=== PATIENT | female | born 1955 | race Caucasian/White ===

== ENCOUNTER 2016-11-16 15:11 | Emergency (ER) | payer BC ==
[2016-11-16 15:23] VITALS: BP 139/92
--- NOTE | 2016-11-16 15:39 | UC ---
Respiratory Complaint HPI - HPI Summary HPI Summary: cough for 1 month---now worsening with right lung pain--no fevers - History of Current Complaint Chief Complaint: UCRespiratory Stated Complaint: sinus congestion, COUGH, AND CHEST CONGESTION Time Seen by Provider: 11/16/16 15:27 Hx Obtained From: Patient Hx Last Menstrual Period: n/a ?: No Onset/Duration: Gradual Onset, Still Present, Worse Since - past 2 days Timing: Constant Severity Initially: Mild Severity Currently: Moderate Pain Intensity: 7 Pain Scale Used: 0-10 Numeric Character: Cough: Nonproductive Aggravating Factors: Nothing Alleviating Factors: Nothing Associated Signs And Symptoms: Positive: Pleuritic Chest Pain - Allergies/Home Medications Allergies/Adverse Reactions: Allergies Allergy/AdvReac Type Severity Reaction Status Date / Time No Known Allergies Allergy Verified 11/16/16 15:23 Home Medications: Home Medications Clarithromycin TAB* [Biaxin TAB*] 1 BID 11/16/16 [History] PMH/Surg Hx/FS Hx/Imm Hx Previously Healthy: No - DVT, PE, Hypothyroid Endocrine History Of: Denies: Diabetes Cardiovascular History Of: Denies: Hypertension, Pacemaker/ICD, Congestive Heart Failure GI/ History Of: Denies: Renal Disease - Surgical History Surgical History: Yes Surgery Procedure, Year, and Place: BLADDER SLING(TVT SLING) 2009 * 1.5T ONLY * , HYSTERECTOMY 2009 , BILAT CARPAL TUNNEL RELEASE 1995, BILAT FEET PLANTAR FASCIITIS , TUBAL LIGATION, TONSILLECTOMY, IVC FILTER FOR ONE MONTH 2009, BLADDER SLING REMOVAL SURGERY 2015 - Family History Known Family History: Positive: Hypertension - Social History Occupation: Employed Full-time Lives: With Family Alcohol Use: None Substance Use Type: None Smoking Status (MU): Never Smoked Tobacco - Immunization History Most Recent Influenza Vaccination: unk Most Recent Tetanus Shot: unk Most Recent Pneumonia Vaccination: unk Review of Systems Constitutional: Negative Skin: Negative Eyes: Negative ENT: Negative Respiratory: Cough Cardiovascular: Negative Gastrointestinal: Negative Genitourinary: Negative Motor: Negative Neurovascular: Negative Musculoskeletal: Negative Neurological: Negative Psychological: Negative All Other Systems Reviewed And Are Negative: Yes Physical Exam Triage Information Reviewed: Yes Appearance: Well-Appearing, Well-Nourished, Pain Distress - mild Vital Signs: Initial Vital Signs Temp 97.0 F 03/03/17 15:15 Pulse 112 11/16/16 15:15 Resp 20 11/16/16 15:15 BP 139/92 11/16/16 15:15 Pulse Ox 96 11/16/16 15:15 Vital Signs Reviewed: Yes Eye Exam: Normal Eyes: Positive: Conjunctiva Clear ENT Exam: Normal ENT: Positive: Normal ENT inspection, Hearing grossly normal, TMs normal. Negative: Nasal congestion, Nasal drainage, Tonsillar swelling, Tonsillar exudate, Trismus, Muffled/hoarse voice Dental Exam: Normal Neck exam: Normal Neck: Positive: Supple, Nontender, No Lymphadenopathy Respiratory Exam: Normal Respiratory: Positive: Chest non-tender, Lungs clear, Normal breath sounds, No respiratory distress, No accessory muscle use Cardiovascular Exam: Normal Cardiovascular: Positive: No Murmur, Pulses Normal, Brisk Capillary Refill, Tachycardia Abdominal Exam: Normal Musculoskeletal Exam: Normal Musculoskeletal: Positive: Strength Intact, ROM Intact, No Edema Neurological Exam: Normal Neurological: Positive: Alert, Muscle Tone Normal, Fatigued Psychological Exam: Normal Skin Exam: Normal Skin: Positive: rashes UC Diagnostic Evaluation - Laboratory O2 Sat by Pulse Oximetry: 96 Respiratory Course/Dx - Course Course Of Treatment[place] [facility] [place] - Differential Dx/Diagnosis Differential Diagnosis/HQI/PQRI: Bronchitis, Lower Resp Infection, Other - PE Provider Diagnoses: Left lung pain/ cough - Physician Notification/Consults Discussed Patient Care With: Aline Cobb Time Discussed With Above Provider: 15:40 Instructed by Provider To: Transfer Discharge - Discharge Plan Condition: Fair Disposition: AGAINST MEDICAL ADVICE
== END 2016-11-16 15:47 | disposition left against medical advice (07) ==
LOC: UCEAST 15:11
DX: R05 Cough (principal); R07.9 Chest pain, unspecified
CPT/HCPCS: 99212; G0463

== ENCOUNTER 2016-11-16 16:24 | Emergency (ER) | payer BC ==
[2016-11-16 17:42] LABS: Hematocrit 45 % (35-47); Hemoglobin 14.9 g/dl (12.0-16.0); Mean Corpuscular HGB Conc 33 g/dl (31-36); Mean Corpuscular Hemoglobin 31 pg (27-31); Mean Corpuscular Volume 93 fL (80-97); Mean Platelet Volume 7 um3 (7.4-10.4); Red Blood Count 4.85 10^6/ul (4.0-5.4); Red Cell Distribution Width 13 % (10.5-15); White Blood Count 5.7 10^3/ul (3.5-10.8)
--- NOTE | 2016-11-16 18:03 | RAD ---
Indication: RIGHT side chest pain for the past 2 days; constant. History of aneurysm. Comparison: January 21, 2016 CT. Technique: Dual energy PA chest Report: Clear lungs and pleural spaces. Negative for pneumothorax. The heart, pulmonary vasculature, and mediastinal contours are unremarkable. Negative for free air beneath the diaphragm. No rib fracture evident. IMPRESSION: No evidence for acute intrathoracic disease.
[2016-11-16 18:07] LABS: Albumin 4.4 g/dL (3.2-5.2); BUN/Creatinine Ratio 13.3 (8-20); Calcium 9.8 mg/dL (8.6-10.3); EGFR African American 82.4 (>60); EGFR Non-African American 64.1 (>60); Globulin 3.7 g/dL (2-4); Potassium 4.2 mmol/L (3.5-5.0); Total Bilirubin 0.5 mg/dL (0.2-1.0); Total Protein 8.1 g/dL (6.4-8.9)
[2016-11-16 18:26] LABS: TSH (Thyroid Stimulating Horm) 2.1 mcIU/mL (0.34-5.60)
[2016-11-16] MEDS ORDERED: oxyCODONE/Acetamin 5/325 MG* TAB PO ONE (19:15)
[2016-11-16] MEDS ORDERED: predniSONE TAB* 20 MG PO ONE (19:17)
[2016-11-16] MEDS ORDERED: HYDROcodone/ACETAMIN 5-325 MG* 1 TAB PO ONE (19:24)
[2016-11-16 19:37] VITALS: BP 125/73
--- NOTE | 2016-11-16 20:43 | ED ---
William Brothers Matthew, scribed for Boone Basurto MD on 11/16/16 at 1831 . HPI Chest Pain - HPI Summary HPI Summary: A 61 y/o female presents to the ED with right sided chest pain for the past 2 days. The pain is rated 5/10 in severity and described as sharp. Her chest pain is worse with coughing. Associated symptoms include chest congestion, chills, productive cough, rhinorrhea - green discharge. The patient denies SOB and fever. She had a recent sinus infection and URI and was prescribed biaxin. Hx of PE, HLD, thyroid disease. The patient is on pradaxa. FHx of CAD. - History of Current Complaint Chief Complaint: EDChestWallPain Time Seen by Provider: 11/16/16 18:28 Hx Obtained From: Patient Onset/Duration: Started Days Ago, Atraumatic, Still Present Initial Severity: Moderate Current Severity: Moderate Pain Intensity: 5 Pain Scale Used: 0-10 Numeric Chest Pain Location: Right Lateral Chest Pain Radiates: No Character: Sharp/Stabbing Aggravating Factor(s): Other: - Cough Associated Signs and Symptoms: Positive: Chest Pain - only w/ cough, Chills, Productive Cough, Other: - Rhinorrhea. Negative: Shortness of Breath, Fever - Allergy/Home Medications Allergies/Adverse Reactions: Allergies Allergy/AdvReac Type Severity Reaction Status Date / Time No Known Allergies Allergy Verified 11/16/16 15:23 PMH/Surg Hx/FS Hx/Imm Hx Endocrine/Hematology History: Denies: Hx Diabetes Cardiovascular History: Denies: Hx Congestive Heart Failure, Hx Hypertension, Hx Pacemaker/ICD History: Denies: Hx Dialysis, Hx Renal Disease Sensory History: Reports: Hx Hearing Aid - WILL REMOVE FOR MRI Psychiatric History: Denies: Hx Panic Disorder - Surgical History Surgery Procedure, Year, and Place: BLADDER SLING(TVT SLING) 2009 * 1.5T ONLY * , HYSTERECTOMY 2009 , BILAT CARPAL TUNNEL RELEASE 1995, BILAT FEET PLANTAR FASCIITIS , TUBAL LIGATION, TONSILLECTOMY, IVC FILTER FOR ONE MONTH 2009, BLADDER SLING REMOVAL SURGERY 2015 Hx Anesthesia Reactions: No Infectious Disease History: No Infectious Disease History: Reports: Hx Shingles Denies: Traveled Outside the [place] in Last 30 Days - Family History Known Family History: Positive: Hypertension - Social History Alcohol Use: None Substance Use Type: Reports: None Smoking Status (MU): Never Smoked Tobacco Review of Systems Constitutional: Other - Rhinorrhea Positive: Chills. Negative: Fever Eyes: Negative ENT: Negative Positive: Chest Pain - only w/ cough Respiratory: Other - chest congestion Positive: Cough - productive . Negative: Shortness Of Breath Gastrointestinal: Negative Genitourinary: Negative Musculoskeletal: Negative Skin: Negative Neurological: Negative Psychological: Normal All Other Systems Reviewed And Are Negative: Yes Physical Exam - Summary Physical Exam Summary: VITAL SIGNS: Reviewed. GENERAL: Patient is a well developed and nourished female who is lying comfortable in the stretcher. Patient is not in any acute respiratory distress. HEAD AND FACE: No signs of trauma. No ecchymosis, hematomas or skull depressions. No sinus tenderness. EYES: PERRLA, EOMI x 2, No injected conjunctiva, no nystagmus. EARS: Hearing grossly intact. Ear canals and tympanic membranes are within normal limits. MOUTH: Oropharynx within normal limits. NECK: Supple, trachea is midline, no adenopathy, no JVD, no carotid bruit, no c- spine tenderness, neck with full ROM. CHEST: Symmetric, positive tenderness in the right rib cage area at palpation LUNGS: Clear to auscultation bilaterally. No wheezing or crackles. CVS: Regular rate and rhythm, S1 and S2 present, no murmurs or gallops appreciated. ABDOMEN: Soft, non-tender. No signs of distention. No rebound no guarding, and no masses palpated. Bowel sounds are normal. EXTREMITIES: FROM in all major joints, no edema, no cyanosis or clubbing. NEURO: Alert and oriented x 3. No acute neurological deficits. Speech is normal and follows commands. SKIN: Dry and warm Triage Information Reviewed: Yes Vital Signs On Initial Exam: Initial Vitals Temp Pulse Resp BP Pulse Ox 98.3 F 94 18 136/83 99 11/16/16 16:32 11/16/16 16:32 11/16/16 16:32 11/16/16 16:32 11/16/16 16:32 Vital Signs Reviewed: Yes - Tucker Coma Scale Coma Scale Total: 15 Diagnostics - Vital Signs Vital Signs Temp Pulse Resp BP Pulse Ox 11/16/16 18:25 95 20 98 11/16/16 18:24 115/76 11/16/16 16:32 98.3 F 94 18 136/83 99 - Laboratory Lab Results: Lab Results 11/16/16 11/16/16 11/16/16 Range/Units 17:30 17:30 17:30 WBC 5.7 (3.5-10.8) 10^3/ul RBC 4.85 (4.0-5.4) 10^6/ul Hgb 14.9 (12.0-16.0) g/dl Hct 45 (35-47) % MCV 93 (80-97) fL MCH 31 (27-31) pg MCHC 33 (31-36) g/dl RDW 13 (10.5-15) % Plt Count 285 (150-450) 10^3/ul MPV 7 L (7.4-10.4) um3 Neut % (Auto) 52.9 (38-83) % Lymph % (Auto) 36.8 (25-47) % [place] % (Auto) 8.5 (1-9) % Eos % (Auto) 0.6 (0-6) % Baso % (Auto) 1.2 (0-2) % Absolute Neuts (auto) 3.0 (1.5-7.7) 10^3/ul Absolute Lymphs (auto) 2.1 (1.0-4.8) 10^3/ul Absolute Monos (auto) 0.5 (0-0.8) 10^3/ul Absolute Eos (auto) 0 (0-0.6) 10^3/ul Absolute Basos (auto) 0.1 (0-0.2) 10^3/ul Absolute Nucleated RBC 0.01 10^3/ul Nucleated RBC % 0.1 APTT 48.1 H (26.0-36.3) seconds D-Dimer, Quantitative < 200 (Less Than 230) ng/mL Sodium 135 (133-145) mmol/L Potassium 4.2 (3.5-5.0) mmol/L Chloride 100 L (101-111) mmol/L Carbon Dioxide 27 (22-32) mmol/L Anion Gap 8 (2-11) mmol/L BUN 12 (6-24) mg/dL Creatinine 0.90 (0.51-0.95) mg/dL Est GFR ( Amer) 82.4 (>60) Est GFR (Non-Af Amer) 64.1 (>60) BUN/Creatinine Ratio 13.3 (8-20) Glucose 88 (70-100) mg/dL Lactic Acid (0.5-2.0) mmol/L Calcium 9.8 (8.6-10.3) mg/dL Total Bilirubin 0.50 (0.2-1.0) mg/dL AST 18 (13-39) U/L ALT 21 (7-52) U/L Alkaline Phosphatase 67 (34-104) U/L CK-MB (CK-2) 2.3 (0.6-6.3) ng/mL Troponin I 0.00 (<0.04) ng/mL B-Natriuretic Peptide ( - 100) pg/mL Total Protein 8.1 (6.4-8.9) g/dL Albumin 4.4 (3.2-5.2) g/dL Globulin 3.7 (2-4) g/dL Albumin/Globulin Ratio 1.2 (1-3) TSH 2.10 (0.34-5.60) mcIU/mL 11/16/16/11/30 Range/Units 17:30 17:30 WBC (3.5-10.8) 10^3/ul RBC (4.0-5.4) 10^6/ul Hgb (12.0-16.0) g/dl Hct (35-47) % MCV (80-97) fL MCH (27-31) pg MCHC (31-36) g/dl RDW (10.5-15) % Plt Count (150-450) 10^3/ul MPV (7.4-10.4) um3 Neut % (Auto) (38-83) % Lymph % (Auto) (25-47) % [place] % (Auto) (1-9) % Eos % (Auto) (0-6) % Baso % (Auto) (0-2) % Absolute Neuts (auto) (1.5-7.7) 10^3/ul Absolute Lymphs (auto) (1.0-4.8) 10^3/ul Absolute Monos (auto) (0-0.8) 10^3/ul Absolute Eos (auto) (0-0.6) 10^3/ul Absolute Basos (auto) (0-0.2) 10^3/ul Absolute Nucleated RBC 10^3/ul Nucleated RBC % APTT (26.0-36.3) seconds D-Dimer, Quantitative (Less Than 230) ng/mL Sodium (133-145) mmol/L Potassium (3.5-5.0) mmol/L Chloride (101-111) mmol/L Carbon Dioxide (22-32) mmol/L Anion Gap (2-11) mmol/L BUN (6-24) mg/dL Creatinine (0.51-0.95) mg/dL Est GFR ( Amer) (>60) Est GFR (Non-Af Amer) (>60) BUN/Creatinine Ratio (8-20) Glucose (70-100) mg/dL Lactic Acid 0.6 (0.5-2.0) mmol/L Calcium (8.6-10.3) mg/dL Total Bilirubin (0.2-1.0) mg/dL AST (13-39) U/L ALT (7-52) U/L Alkaline Phosphatase (34-104) U/L CK-MB (CK-2) (0.6-6.3) ng/mL Troponin I (<0.04) ng/mL B-Natriuretic Peptide 15 ( - 100) pg/mL Total Protein (6.4-8.9) g/dL Albumin (3.2-5.2) g/dL Globulin (2-4) g/dL Albumin/Globulin Ratio (1-3) TSH (0.34-5.60) mcIU/mL Result Diagrams: 11/16/16 17:30 11/16/16 17:30 Lab Statement: Any lab studies that have been ordered have been reviewed, and results considered in the medical decision making process. - Radiology CXR Xray Interpretation: No Acute Changes - IMPRESSION: No evidence for acute intrathoracic disease. Radiology Interpretation Completed By: Radiologist Chest Pain Course/Dx - Course Assessment/Plan: A 61 y/o female presents to the ED with right sided chest pain for the past 2 days. The pain is rated 5/10 in severity and described as sharp. Her chest pain is worse with coughing. Associated symptoms include chest congestion, chills, productive cough, rhinorrhea - green discharge. The patient denies SOB and fever. She had a recent sinus infection and URI and was prescribed biaxin. Hx of PE, HLD, thyroid disease. The patient is on pradaxa. FHx of CAD. Blood work WNL. D-Dimer less than 200. CXR shows no acute pathology. The patients pain is reproducible on the right rib cage area around the 6-7th rib. The pain is only when she cough or moves. Therefore, I believe the patients pain is in the chest wall or pleural. The patient was given prednisone and Walker for the pain. Since the D-dimer is negative I have a low suspicion for PE and since the troponin is 0.00 I have low suspicion for cardiac etiology. EKG: NSR at BPM w/o JESUS. She will be discharged home on Vicodin and dextromethor to follow-up with her PCP. She was instructed to return to the ED if her symptoms worsen or she develops fever or chills. The patient is A&Ox3 and hemodynamically stable. - Chest Pain Differential Diagnosis/HQI/PQRI: CHF, Chest Wall, Pulmonary Edema, Pulmonary Embolism - Diagnoses Provider Diagnoses: Pleural condition, unspecified, Rib pain on right side Discharge - Discharge Plan Condition: Stable Disposition: HOME Prescriptions: Hydrocodone-Acetaminophen [Vicodin 5-300 mg] 1 tab PO Q6H PRN #14 tab MDD max 4 tabs / day PRN Reason: Pain Promethazine-Dm [Promethazine/Dextromethor] 5 ml PO Q8H #90 ml Patient Education Materials: Pleurisy (ED) Forms: *Work Release Referrals: Sandrine Mccann MD [Primary Care Provider] - 3 Days Additional Instructions: Please follow-up with your primary care physician in 3 days. The documentation as recorded by the William cheng Matthew accurately reflects the service I personally performed and the decisions made by , Boone Basurto MD.
== END 2016-11-16 19:52 | disposition home or self-care (01) ==
LOC: ED 16:24
DX: R07.81 Pleurodynia (principal); R07.9 Chest pain, unspecified; R05 Cough; R68.83 Chills (without fever)
CPT/HCPCS: 36415; 71010; 80053; 82553; 83605; 83880; 84443; 84484; 85025; 85379; 85730; 99283; A9270-GY; J7512

== ENCOUNTER 2017-04-08 16:48 | Emergency (ER) | payer BC ==
[2017-04-08 16:56] VITALS: BP 146/106
--- NOTE | 2017-04-08 20:08 | UC ---
Complaint Female HPI - HPI Summary HPI Summary: UTI DIAGNOSED TWO WEEKS AGO SYMPTOMS SEEMED TO IMPROVE WITH ANTIBIOTICS. OVER LAST TWO DAYS SYMPTOMS HAVE RETURNED (LOW BACK PAIN, BURNING WITH URINATION, FREQUENCY), HAS HISTORY OF INTERSTITIAL CYSTITIS. - History Of Current Complaint Chief Complaint: UCGU Stated Complaint: ABD & BACK PAIN,BLOOD IN URINE Time Seen by Provider: 04/08/17 18:17 Hx Obtained From: Patient Hx Last Menstrual Period: n/a Onset/Duration: Gradual Onset, Lasting Weeks, Still Present Timing: Lasting Weeks Severity Initially: Mild Severity Currently: Mild Pain Intensity: 1 Pain Scale Used: 0-10 Numeric Aggravating Factor(s): Urination Associated Signs And Symptoms: Positive: Back Pain - MILD. Negative: Fever, Vaginal Bleeding/Discharge, Vaginal Discharge - Risk Factors Ectopic Risk Factor: Negative Ovarian Torsion Risk Factor: Negative - Allergies/Home Medications Allergies/Adverse Reactions: Allergies Allergy/AdvReac Type Severity Reaction Status Date / Time No Known Allergies Allergy Verified 11/16/16 15:23 PMH/Surg Hx/FS Hx/Imm Hx Previously Healthy: Yes - Surgical History Surgical History: Yes Surgery Procedure, Year, and Place: BLADDER SLING(TVT SLING) 2009 * 1.5T ONLY * , HYSTERECTOMY 2009 , BILAT CARPAL TUNNEL RELEASE 1995, BILAT FEET PLANTAR FASCIITIS , TUBAL LIGATION, TONSILLECTOMY, IVC FILTER FOR ONE MONTH 2009, BLADDER SLING REMOVAL SURGERY 2015 - Family History Known Family History: Positive: Hypertension - Social History Alcohol Use: None Substance Use Type: None Smoking Status (MU): Never Smoked Tobacco - Immunization History Most Recent Influenza Vaccination: unk Most Recent Tetanus Shot: unk Most Recent Pneumonia Vaccination: unk Review of Systems Constitutional: Negative Skin: Negative Eyes: Negative ENT: Negative Respiratory: Negative Cardiovascular: Negative Gastrointestinal: Negative Genitourinary: Negative Motor: Negative Neurovascular: Negative Musculoskeletal: Arthralgia, Myalgia Neurological: Negative Psychological: Negative All Other Systems Reviewed And Are Negative: Yes Physical Exam Triage Information Reviewed: Yes Appearance: Well-Appearing, No Pain Distress, Well-Nourished Vital Signs: Initial Vital Signs Temp 98.4 F 04/08/17 16:52 Pulse 88 04/08/17 16:52 Resp 20 04/08/17 16:52 BP 146/106 04/08/17 16:52 Pulse Ox 100 04/08/17 16:52 Vital Signs Reviewed: Yes Eye Exam: Normal ENT Exam: Normal Dental Exam: Normal Neck exam: Normal Respiratory Exam: Normal Respiratory: Positive: Chest non-tender, Lungs clear, Normal breath sounds, No respiratory distress Cardiovascular Exam: Normal Cardiovascular: Positive: RRR, No Murmur, Pulses Normal Abdominal Exam: Normal Musculoskeletal Exam: Normal Musculoskeletal: Positive: Strength Intact, ROM Intact Neurological Exam: Normal Psychological Exam: Normal Skin Exam: Normal Complaint Female Dx - Differential Dx/Diagnosis Differential Diagnosis/HQI/PQRI: Sexually Transmitted Disease, Urinary Tract Infection, Other - INTERSTITIAL CYSTITIS Provider Diagnoses: CYSTITIS; DYSURIA Discharge - Discharge Plan Condition: Stable Disposition: HOME Prescriptions: Fluconazole [Diflucan 150 MG (NF)] 150 mg PO ONCE #1 tab Patient Education Materials: Dysuria (ED) Referrals: Sandrine Mccann MD [Primary Care Provider] - Jose Elias Kamara MD [Medical Doctor] -
== END 2017-04-08 19:11 | disposition home or self-care (01) ==
LOC: UCEAST 16:48
DX: N30.90 Cystitis, unspecified without hematuria (principal); R30.0 Dysuria
CPT/HCPCS: 81003; 99212; G0463

== ENCOUNTER 2018-01-02 16:01 | Emergency (ER) | payer SELFPAY ==
[2018-01-02 16:28] VITALS: BP 146/100
--- NOTE | 2018-01-02 17:03 | UC ---
Minor Trauma HPI - HPI Summary HPI Summary: 62 yo female slipped and fell at work a few hours ago Landed on her back struck the back of her head NO LOC c/o right elbow 7/10 pain c/o mid thoracic pain 6/10 c/o occipital INFANTE 3/10 no photo/phono phobia no nausea or vomiting no disequilibrium denies neck pain denies hip pain right elbow abrasions continues to ooze - History of Current Complaint Chief Complaint: UCGeneralIllness Stated Complaint: HEAD AND ELBOW INJURY Time Seen by Provider: 01/02/18 16:03 Hx Obtained From: Patient Hx Last Menstrual Period: n/a Onset/Duration: Sudden Onset, Lasting Hours Onset Of Pain: Immediate Severity Initially: Moderate Severity Currently: Moderate Pain Intensity: 6 Pain Scale Used: 0-10 Numeric Mechanism Of Injury: Fall From Height Of: Aggravating Factor(s): Coughing, Deep Breaths, Movement Alleviating Factor(s): Rest Associated Signs And Symptoms: Positive: Swelling. Negative: Loss Of Consciousness, Ecchymosis Related History: Positive: Occupational Injury, Anticoagulants - Allergies/Home Medications Allergies/Adverse Reactions: Allergies Allergy/AdvReac Type Severity Reaction Status Date / Time No Known Allergies Allergy Verified 01/02/18 16:28 PMH/Surg Hx/FS Hx/Imm Hx Previously Healthy: Yes Cardiovascular History: Hypertension, Deep Vein Thrombosis Respiratory History: Pulmonary Embolism - x2 - Surgical History Surgical History: Yes Surgery Procedure, Year, and Place: BLADDER SLING(TVT SLING) REMOVED*, HYSTERECTOMY 2009 , BILAT CARPAL TUNNEL RELEASE 1995, BILAT FEET PLANTAR FASCIITIS , TUBAL LIGATION, TONSILLECTOMY, IVC FILTER FOR ONE MONTH 2009, BLADDER SLING REMOVAL SURGERY 2015 - Family History Known Family History: Positive: Hypertension - Social History Alcohol Use: None Substance Use Type: None Smoking Status (MU): Never Smoked Tobacco - Immunization History Most Recent Influenza Vaccination: unk Most Recent Tetanus Shot: unk Most Recent Pneumonia Vaccination: unk Review of Systems Constitutional: Negative Skin: Negative Eyes: Negative ENT: Negative Respiratory: Negative Cardiovascular: Negative Gastrointestinal: Negative Genitourinary: Negative Motor: Negative Neurovascular: Negative Musculoskeletal: Arthralgia, Myalgia Neurological: Headache Psychological: Negative Is Patient Immunocompromised?: No All Other Systems Reviewed And Are Negative: Yes Physical Exam Triage Information Reviewed: Yes Appearance: Well-Appearing, No Pain Distress, Well-Nourished Vital Signs: Initial Vital Signs Temp 98.2 F 01/02/18 16:21 Pulse 90 01/02/18 16:21 Resp 18 01/02/18 16:21 BP 146/100 01/02/18 16:21 Pulse Ox 97 01/02/18 16:21 Vital Signs Reviewed: Yes Eyes: Positive: Conjunctiva Clear ENT: Negative: Hearing grossly normal - bilat hearing aids, Nasal congestion, Trismus, Muffled voice Dental: Positive: Other: - no tmj tenderness Neck: Positive: Supple, Nontender, No Lymphadenopathy Respiratory: Positive: Lungs clear, Normal breath sounds, No respiratory distress, No accessory muscle use Cardiovascular: Positive: RRR, No Murmur Musculoskeletal: Positive: ROM Intact Neurological: Positive: Alert Psychological Exam: Normal Skin Exam: Other - abrasion right elbow Diagnostics - Radiology No standard instances Xray Interpretation: No Acute Changes Radiology Interpretation Completed By: Radiologist - r elbow-no fx, T-S DDD, CT brain neg Minor Trauma Course/Dx - Differential Dx/Diagnosis Provider Diagnoses: 1. scalp hematoma. 2. right elbow contusion and abrasion. 3. thoraic strain/ontusion. 4. Elevated BP without dx of hypertension Discharge - Sign-Out/Discharge Documenting (check all that apply): Discharge - Discharge Plan Condition: Stable Disposition: HOME Patient Education Materials: Pulmonary Contusion (ED), Head Injury (ED), Abrasion (ED) Referrals: Sandrine Mccann MD [Primary Care Provider] - Additional Instructions: recheck in 5 days if not markedly improved recheck in ER for worsening headache/confusion/vomiting tylenol for pain ice - Billing Disposition and Condition Condition: STABLE Disposition: HOME
--- NOTE | 2018-01-02 17:14 | RAD ---
INDICATION: Trauma, laceration injury right elbow. TECHNIQUE: 4 views of the right elbow were obtained. FINDINGS: The bones are normal alignment. No fracture is seen. No joint effusion is noted. There is soft tissue swelling and air posterior to the olecranon process of the ulna consistent with the patient's history of a laceration type injury. IMPRESSION: SOFT TISSUE INJURY, NO FRACTURE IS SEEN.
--- NOTE | 2018-01-02 17:16 | RAD ---
INDICATION: Trauma, back pain. COMPARISON: Comparison is made with a prior CT of the chest from January 21, 2016. TECHNIQUE: AP and lateral films of the dorsal spine were obtained. FINDINGS: There is a slightly exaggerated dorsal kyphosis. The vertebra are otherwise in normal alignment. No fracture is seen. There is moderate to severe degenerative disc disease in the mid dorsal spine. IMPRESSION: 1. NO EVIDENCE FOR FRACTURE. 2. MODERATE TO SEVERE DEGENERATIVE DISC DISEASE.
[2018-01-02] MEDS ORDERED: Tetan/Diph/Pertus SYR(Tdap)* 0.5 ML SYR(BOOSTRIX) use SYR IM ONE (17:25)
--- NOTE | 2018-01-02 17:30 | RAD ---
INDICATION: Head injury, anticoagulated. COMPARISON: There are no prior studies available for comparison. TECHNIQUE: Contiguous axial sections of the brain were obtained from the skull base to the vertex without contrast. FINDINGS: The ventricles, cisterns and sulci are within normal limits. No significant focal abnormality or mass effect is seen. There is no evidence for hemorrhage. No significant focal osseous abnormality is seen. The visualized portion of the paranasal sinuses and mastoid air cells appear clear. IMPRESSION: NO EVIDENCE FOR ACUTE INTRACRANIAL ABNORMALITY.
== END 2018-01-02 17:45 | disposition home or self-care (01) ==
LOC: UCEAST 16:01
DX: S00.03XA Contusion of scalp, initial encounter (principal); S50.01XA Contusion of right elbow, initial encounter; S20.229A Contusion of unspecified back wall of thorax, initial encounter; S50.311A Abrasion of right elbow, initial encounter; W01.0XXA Fall on same level from slipping, tripping and stumbling without subsequent striking against object, initial encounter; Y93.9 Activity, unspecified; Y92.9 Unspecified place or not applicable; Y99.0 Civilian activity done for income or pay; Z23 Encounter for immunization; M51.34 Other intervertebral disc degeneration, thoracic region; I10 Essential (primary) hypertension; Z86.718 Personal history of other venous thrombosis and embolism; Z86.711 Personal history of pulmonary embolism; Z79.01 Long term (current) use of anticoagulants
CPT/HCPCS: 70450; 72070; 90471; 90715; 99212; G0463

== ENCOUNTER 2018-06-30 07:55 | Emergency (ER) | payer BC ==
[2018-06-30 08:18] VITALS: BP 139/91
--- NOTE | 2018-06-30 08:51 | UC ---
Dizzy HPI HPI Summary: 62-year-old woman comes in with a chief complaint of dizziness. She woke up this morning around 6:00 and when she moved her head she gets a spinning dizziness. Denies any vision changes or difficulty of speech or any weakness or numbness. 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 When she is dizzy she feels nauseous and not well. Denies any chest pain or headache. She does have a history of hearing loss and she has hearing aids in. She also has chronic nasal congestion. Yesterday she injured her left hip and bruised her left hip she wonders if there is a blood clot causing her dizziness. - History Of Current Complaint Chief Complaint: UCDizziness Stated Complaint: DIZZINESS Time Seen by Provider: 06/30/18 08:14 Hx Last Menstrual Period: n/a Pain Intensity: 4 - Allergies/Home Medications Allergies/Adverse Reactions: Allergies Allergy/AdvReac Type Severity Reaction Status Date / Time No Known Allergies Allergy Verified 06/30/18 08:18 Home Medications: Home Medications Acetaminophen TAB* [Tylenol TAB*] 975 mg PO Q6H PRN 06/30/18 [History Confirmed 06/30/18] Loratadine [Claritin] 10 mg PO DAILY PRN 06/30/18 [History Confirmed 06/30/18] Ubidecarenone [Natural Coenzyme Q10] 100 mg PO DAILY 06/30/18 [History Confirmed 06/30/18] PMH/Surg Hx/FS Hx/Imm Hx Cardiovascular History: Deep Vein Thrombosis, Other - pe Other Cardiovascular History: . - Surgical History Surgical History: Yes Surgery Procedure, Year, and Place: BLADDER SLING(TVT SLING) REMOVED*, HYSTERECTOMY 2009 , BILAT CARPAL TUNNEL RELEASE 1995, BILAT FEET PLANTAR FASCIITIS , TUBAL LIGATION, TONSILLECTOMY, IVC FILTER FOR ONE MONTH 2009, BLADDER SLING REMOVAL SURGERY 2015 - Family History Known Family History: Positive: Hypertension - Social History Alcohol Use: None Substance Use Type: None Smoking Status (MU): Never Smoked Tobacco - Immunization History Most Recent Influenza Vaccination: unk Most Recent Tetanus Shot: unk Most Recent Pneumonia Vaccination: unk Review of Systems Constitutional: Negative Skin: Negative Eyes: Negative ENT: Other - see hpi Respiratory: Negative Cardiovascular: Negative Gastrointestinal: Negative Motor: Negative Neurovascular: Negative Musculoskeletal: Negative Neurological: Other - SEE HPI Psychological: Negative Is Patient Immunocompromised?: No All Other Systems Reviewed And Are Negative: Yes Physical Exam Triage Information Reviewed: Yes Appearance: Well-Appearing, No Pain Distress, Well-Nourished Vital Signs: Initial Vital Signs Temp 98.4 F 06/30/18 08:11 Pulse 101 06/30/18 08:11 Resp 16 06/30/18 08:11 BP 139/91 06/30/18 08:11 Pulse Ox 98 06/30/18 08:11 Vital Signs Reviewed: Yes Eye Exam: Normal Eyes: Positive: Conjunctiva Clear, Other: - Patient has some mild right bleeding horizontal nystagmus. She does not have any vertical nystagmus or nystagmus when she's not moving her eyes otherwise. There is no visual field deficit. ENT: Positive: Pharynx normal, Nasal congestion, Other - Patient has bilateral hearing aids in. Neck exam: Normal Neck: Positive: Supple Respiratory: Positive: Lungs clear, Normal breath sounds, No respiratory distress Cardiovascular Exam: Normal Cardiovascular: Positive: RRR Musculoskeletal Exam: Normal Musculoskeletal: Positive: Strength Intact, ROM Intact, No Edema Neurological Exam: Normal Neurological: Positive: Alert, Muscle Tone Normal, Other: - No focal neurologic deficit. Finger to nose and heel to williamson are both normal. Psychological Exam: Normal Psychological: Positive: Age Appropriate Behavior Skin Exam: Normal Diagnostics - EKG EKG Comments: AT 08:07 Cardiac Rate: NL Cardiac Rhythm: Sinus: Normal - 96 BPM Ectopy: None ST Segment: Normal Dizzy Course/Dx - Course Course Of Treatment: The cause of the vertigo is most likely benign paroxysmal positional vertigo as the patient does have a stuffy nose and she's got ear hearing aids also the vertigo is worse with movement and it goes away with rest. She only has horizontal nystagmus with eye movement. She also has normal finger-nose and lasp-la-aaaf. I discussed this with the patient she is concerned that a blood clot is causing her dizziness and I recommended she go to the emergency department. She declined ambulance transport. - Differential Dx/Diagnosis Provider Diagnoses: DIZZINESS Discharge - Sign-Out/Discharge Documenting (check all that apply): Patient Departure All imaging exams completed and their final reports reviewed: No Studies - Discharge Plan Condition: Stable Disposition: HOME-RECOMMEND TO ED Prescriptions: Meclizine HCl [Motion Sickness Relief] 25 mg PO Q6H PRN #20 tablet PRN Reason: Dizziness Patient Education Materials: Vertigo (ED), Dizziness (ED) Referrals: Sandrine Mccann MD [Primary Care Provider] - Additional Instructions: GO DIRECTLY TO THE EMERGENCY DEPARTMENT FOR FURTHER EVALUATION. - Billing Disposition and Condition Condition: STABLE Disposition: Home-Recommend to ED
[2018-06-30] MEDS ORDERED: Meclizine TAB* 12.5 MG PO ONE (08:54)
== END 2018-06-30 09:06 | disposition home health service (06) ==
LOC: UCEAST 07:55
DX: R42 Dizziness and giddiness (principal); I82.409 Acute embolism and thrombosis of unspecified deep veins of unspecified lower extremity; I26.99 Other pulmonary embolism without acute cor pulmonale; R09.81 Nasal congestion
CPT/HCPCS: 93005; 99212; A9270-GY; G0463

== ENCOUNTER 2018-06-30 10:14 | Emergency (ER) | payer BC ==
[2018-06-30 12:04] LABS: ABS Basophils 0 10^3/ul (0-0.2); ABS Eosinophils 0 10^3/ul (0-0.6); ABS Lymphocytes 1.7 10^3/ul (1.0-4.8); ABS Monocytes 0.4 10^3/ul (0-0.8); ABS Neutrophils 2.6 10^3/ul (1.5-7.7); ABS Nucleated RBC 0 10^3/ul; Eosinophil % 0.2 % (0-6); Hematocrit 44 % (35-47); Hemoglobin 14.8 g/dl (12.0-16.0); Lymphocyte % 36.6 % (25-47); Mean Corpuscular HGB Conc 34 g/dl (31-36); Mean Corpuscular Hemoglobin 31 pg (27-31); Mean Corpuscular Volume 92 fL (80-97); Mean Platelet Volume 7.7 um3 (7.4-10.4); Nucleated Red Blood Cells % 0.2; Platelet Count 252 10^3/ul (150-450); Red Blood Count 4.73 10^6/ul (4.00-5.40); Red Cell Distribution Width 13 % (10.5-15); White Blood Count 4.7 10^3/ul (3.5-10.8)
[2018-06-30 12:19] LABS: EGFR Non-African American 75.3 (>60)
--- NOTE | 2018-06-30 16:29 | ED ---
Dizziness - HPI Summary HPI Summary: A 62 y/o F referred from Urgent Care presents to ED with c/o dizziness onset upon waking at 0600. The dizziness is described as room-spinning. Associated sx : sinus congestion, cough, mildly unsteady gait, sore throat last week, diarrhea yesterday. Denies fall, head trauma. She is still mildly dizzy at bedside. Yesterday afternoon, pt locked herself out of her house, broke a window and crawled inside. She has minor abrasions to her abd. PMHx: DVT. - History Of Current Complaint Chief Complaint: EDDizziness Stated Complaint: DIZZINESS Hx Obtained From: Patient, Family/Nurse Paralegal - Onset/Duration: Still Present - mildly Timing: Hours Severity Initially: Moderate Severity Currently: Mild Character: Room Spinning Alleviating Factor(s): Other - meclizine Associated Signs And Symptoms: Positive: Other: - pos: sinus congestion - Allergies/Home Medications Allergies/Adverse Reactions: Allergies Allergy/AdvReac Type Severity Reaction Status Date / Time No Known Allergies Allergy Verified 06/30/18 10:44 PMH/Surg Hx/FS Hx/Imm Hx Previously Healthy: No Endocrine/Hematology History: Reports: Hx Thyroid Disease Denies: Hx Diabetes Cardiovascular History: Denies: Hx Congestive Heart Failure, Hx Hypertension, Hx Pacemaker/ICD Respiratory History: Denies: Hx Asthma, Hx Chronic Obstructive Pulmonary Disease (COPD) GI History: Denies: Hx Ulcer History: Denies: Hx Dialysis, Hx Renal Disease Musculoskeletal History: Denies: Hx Osteoporosis Sensory History: Reports: Hx Hearing Aid Psychiatric History: Denies: Hx Panic Disorder - Surgical History Surgery Procedure, Year, and Place: BLADDER SLING(TVT SLING) REMOVED*, HYSTERECTOMY 2009 , BILAT CARPAL TUNNEL RELEASE 1995, BILAT FEET PLANTAR FASCIITIS , TUBAL LIGATION, TONSILLECTOMY, IVC FILTER FOR ONE MONTH 2009, BLADDER SLING REMOVAL SURGERY 2015 Hx Anesthesia Reactions: No Infectious Disease History: No Infectious Disease History: Reports: Hx Shingles Denies: Hx Clostridium Difficile, Hx Hepatitis, Hx Human Immunodeficiency Virus (HIV), Hx of Known/Suspected MRSA, Hx Tuberculosis, Hx Known/Suspected VRE , Hx Known/Suspected VRSA, History Other Infectious Disease, Traveled Outside the [place] in Last 30 Days - Family History Known Family History: Positive: Hypertension - Social History Occupation: Employed Full-time Lives: With Family Alcohol Use: None Hx Substance Use: No Substance Use Type: Reports: None Hx Tobacco Use: No Smoking Status (MU): Never Smoked Tobacco Review of Systems Negative: Fever Eyes: Negative Negative: Blurred Vision Positive: Sore Throat - last week, resolved, Other - pos: sinus congestion. Negative: Ear Ache Cardiovascular: Negative Positive: Cough Positive: Diarrhea Musculoskeletal: Negative Skin: Other - mild abrasions to abd Neurological: Other - pos: dizziness, mildly unsteady gait Negative: Headache Psychological: Normal All Other Systems Reviewed And Are Negative: No Physical Exam - Summary Physical Exam Summary: Appearance: Alert, conversive, nontoxic appearing Skin: Warm, dry, no mottling, no rashes, no contusions HEENT: EOMI, PERRL, moist mucous membranes. Hearing aids present. Neck: No masses on the neck, supple Respiratory: Clear to auscultation, breath sounds present, no rales, no rhonchi , no wheezes Cardiovascular: RRR, pulses are symmetrical in both lower and upper extremities Abdomen: Soft, non-tender Bowel Sounds: Present Musculoskeletal: No CVA tenderness, no obvious deformity, moving all extremities in a grossly normal manner Neurological: A&Ox3, CN II-XII Intact, moving all extremities symmetrically Psychiatric: Normal affect and mood Triage Information Reviewed: Yes Vital Signs On Initial Exam: Initial Vitals Temp Pulse Resp BP Pulse Ox 97.9 F 89 16 137/99 97 06/30/18 10:39 06/30/18 10:39 06/30/18 10:39 06/30/18 10:39 06/30/18 10:39 Vital Signs Reviewed: Yes - Tucker Coma Scale Best Eye Response: 4 - Spontaneous Best Motor Response: 6 - Obeys Commands Best Verbal Response: 5 - Oriented Coma Scale Total: 15 Diagnostics - Vital Signs Vital Signs Temp Pulse Resp BP Pulse Ox 06/30/18 13:50 97.7 F 86 20 116/86 98 06/30/18 10:39 97.9 F 89 16 137/99 97 - Laboratory Lab Results: Lab Results 06/30/18 06/30/18 06/30/18 Range/Units 11:46 11:46 11:46 WBC 4.7 (3.5-10.8) 10^3/ul RBC 4.73 (4.00-5.40) 10^6/ul Hgb 14.8 (12.0-16.0) g/dl Hct 44 (35-47) % MCV 92 (80-97) fL MCH 31 (27-31) pg MCHC 34 (31-36) g/dl RDW 13 (10.5-15) % Plt Count 252 (150-450) 10^3/ul MPV 7.7 (7.4-10.4) um3 Neut % (Auto) 54.4 (38-83) % Lymph % (Auto) 36.6 (25-47) % [place] % (Auto) 7.9 H (0-7) % Eos % (Auto) 0.2 (0-6) % Baso % (Auto) 0.9 (0-2) % Absolute Neuts (auto) 2.6 (1.5-7.7) 10^3/ul Absolute Lymphs (auto) 1.7 (1.0-4.8) 10^3/ul Absolute Monos (auto) 0.4 (0-0.8) 10^3/ul Absolute Eos (auto) 0 (0-0.6) 10^3/ul Absolute Basos (auto) 0 (0-0.2) 10^3/ul Absolute Nucleated RBC 0 10^3/ul Nucleated RBC % 0.2 Sodium 140 (135-145) mmol/L Potassium 4.3 (3.5-5.0) mmol/L Chloride 107 (101-111) mmol/L Carbon Dioxide 29 (22-32) mmol/L Anion Gap 4 (2-11) mmol/L BUN 14 (6-24) mg/dL Creatinine 0.78 (0.51-0.95) mg/dL Est GFR ( Amer) 91.2 (>60) Est GFR (Non-Af Amer) 75.3 (>60) BUN/Creatinine Ratio 17.9 (8-20) Glucose 94 (70-100) mg/dL Lactic Acid 0.8 (0.5-2.0) mmol/L Calcium 9.7 (8.6-10.3) mg/dL Magnesium 2.2 (1.9-2.7) mg/dL Total Bilirubin 0.50 (0.2-1.0) mg/dL AST 20 (13-39) U/L ALT 24 (7-52) U/L Alkaline Phosphatase 67 (34-104) U/L Total Protein 7.1 (6.4-8.9) g/dL Albumin 4.3 (3.2-5.2) g/dL Globulin 2.8 (2-4) g/dL Albumin/Globulin Ratio 1.5 (1-3) Result Diagrams: 06/30/18 11:46 06/30/18 11:46 Lab Statement: Any lab studies that have been ordered have been reviewed, and results considered in the medical decision making process. - CT BRAIN CT CT Interpretation: No Acute Changes - IMPRESSION: No evidence of intracranial mass or hemorrhage is noted. ED provider has reviewed this report. CT Interpretation Completed By: Radiologist - EKG 1158 Cardiac Rate: NL - 78bpm EKG Rhythm: Sinus Rhythm EKG Interpretation: nml QRS, nml QTC, nml axis. Re-Evaluation - Re-Evaluation 1 Re-Evaluation Time: 17:42 Change: Unchanged Comment: Discussing CT and lab results with pt and . Dizzy Course/Dx - Course Course Of Treatment: Pt is a 62 y/o F referred from Urgent Care presenting with dizziness onset upon waking at 0600. The dizziness is described as room- spinning. Associated sx: sinus congestion, cough, mildly unsteady gait, sore throat last week, diarrhea yesterday. CT scan is negative. Labs are unremarkable. - Diagnoses Provider Diagnoses: Dizziness Discharge - Sign-Out/Discharge Documenting (check all that apply): Patient Departure - Discharge Plan Condition: Stable Disposition: HOME Patient Education Materials: Dizziness (ED) Referrals: Sandrine Mccann MD [Primary Care Provider] - Additional Instructions: Please follow up with your primary care physician this week. return if worse or any new symptoms . Take all medications as previously instructed. - Billing Disposition and Condition Condition: STABLE Disposition: Home - Attestation Statements Document Initiated by Scribe: Yes Documenting Scribe: Cirilo Ha Provider For Whom Scribe is Documenting (Include Credential): Dr. Deb Penaloza MD Scribe Attestation: Cirilo Brothers, scribed for Dr. Deb Penaloza MD on 06/30/18 at 2151. Scribe Documentation Reviewed: Yes Provider Attestation: The documentation as recorded by the skylar, Cirilo Ha accurately reflects the service I personally performed and the decisions made by me, Dr. Deb Penaloza MD
--- NOTE | 2018-06-30 17:02 | RAD ---
Indication: Dizziness. CT of the brain was performed without IV contrast. Ventricular structures are midline. No midline shift is noted. The extra-axial spaces are unremarkable. There is no evidence of intracranial mass or hemorrhage. No other high or low density lesions are identified. Mastoid air cells and paranasal sinuses are otherwise unremarkable. IMPRESSION: No evidence of intracranial mass or hemorrhage is noted.
[2018-06-30 18:41] VITALS: BP 139/91
== END 2018-06-30 18:42 | disposition home or self-care (01) ==
LOC: ED 10:14
DX: R42 Dizziness and giddiness (principal); Z86.718 Personal history of other venous thrombosis and embolism; E07.9 Disorder of thyroid, unspecified
CPT/HCPCS: 36415; 70450; 80053; 83605; 83735; 85025; 93005; 99282

== ENCOUNTER 2019-07-20 07:46 | Emergency (ER) | payer BC ==
--- OUTSIDE RECORDS SUMMARY | 2019-07-20 07:54 | XMS REPORT | Continuity of Care Document ---
:1955 External Reference #:[id number] Author Name Barbara Licea MD Address [address] [place] [address] Care Team Providers Name Role Phone Sandrine Mccann MD Care Team Information Laboratory Equipment Cleaner [phone] Problems Active Problems Provider Date Screening for malignant neoplasm of colon Manuel Lockwood M.D. Onset: 2013 Social History Type Date Description Comments Sex Unknown ETOH Use Denies alcohol use Tobacco Use Start: Unknown Patient has never smoked Smoking Status Reviewed: 06/22/19 Patient has never smoked Allergies, Adverse Reactions, Alerts Description No Known Drug Allergies Medications Active Medications SIG Qnty Indications Ordering Date Provider Ipratropium [place] 1 spray each nostril 30units Snadrine Tam MD 11/24/2018 every day as needed 0.03% Solution Co Q-10 Sandrine Tam MD 11/24/2018 200mg Capsules Levothyroxine Sodium Unknown 50mcg Tablets Atorvastatin Calcium take 1 tablet by Unknown mouth once daily 20mg Tablets Estrace 1 applicatorful Unknown 0.1mg/GM vaginally qd Cream Acetaminophen 2 po q6hrs prn Unknown 325mg Tablets Xarelto 1 by mouth every day Unknown 10mg Tablets to prevent blood clots Immunizations Description No Information Available Vital Signs Date Vital Result Comment 06/22/2019 3:45pm Height 67 inches 5'7" Weight 190.00 lb BP Systolic 151 mmHg BP Diastolic 79 mmHg Heart Rate 98 /min BMI (Body Mass Index) 29.8 kg/m2 06/21/2014 3:47pm Height 67 inches 5'7" Weight 194.00 lb BP Systolic 150 mmHg BP Diastolic 90 mmHg Heart Rate 78 /min BMI (Body Mass Index) 30.4 kg/m2 Results Description No Information Available Procedures Description No Information Available Medical Devices Description No Information Available Encounters Description No Information Available Assessments Date Code Description Provider 06/22/2019 Z86.010 Personal history of colonic polyps Barbara Licea MD 06/22/2019 Z79.01 prison (current) use of anticoagulants Barbara Morgan MD Plan of Treatment Future Appointment(s):10/02/2019 9:45 am - Barbara Licea MD at [facility]06/22/2019 - Barbara Licea MDZ86.010 Personal history of colonic eaujalX13.01 prison (current) use of anticoagulants Functional Status Description No Information Available Mental Status Description No Information Available Referrals Description No Information Available
[2019-07-20 07:57] VITALS: BP 153/87
--- NOTE | 2019-07-20 08:37 | UC ---
General HPI - HPI Summary HPI Summary: Patient is a 63-year-old female presenting with tick bite of right hip. Patient is unsure how long the tick was attached. States she removed the entire tick. Notes redness around the area and joint pains and is concerned for Lyme disease. Denies drainage or bleeding. Denies fever and chills. Denies tenderness of the area. - History of Current Complaint Chief Complaint: UCSkin Stated Complaint: TICK BITE Hx Obtained From: Patient Hx Last Menstrual Period: n/a Pain Intensity: 0 - Allergy/Home Medications Allergies/Adverse Reactions: Allergies Allergy/AdvReac Type Severity Reaction Status Date / Time No Known Allergies Allergy Verified 07/20/19 07:57 Home Medications: Home Medications Rivaroxaban TAB(*) [Xarelto 10 mg (*)] 1 dose PO QPM 07/20/19 [History Confirmed 07/20/19] PMH/Surg Hx/FS Hx/Imm Hx Endocrine History: Hypothyroidism, Dyslipidemia - Surgical History Surgical History: Yes Surgery Procedure, Year, and Place: BLADDER SLING(TVT SLING) REMOVED*, HYSTERECTOMY 2009 , BILAT CARPAL TUNNEL RELEASE 1995, BILAT FEET PLANTAR FASCIITIS , TUBAL LIGATION, TONSILLECTOMY, IVC FILTER FOR ONE MONTH 2009, BLADDER SLING REMOVAL SURGERY 2015 - Family History Known Family History: Positive: Hypertension, Non-Contributory - Social History Occupation: Employed Full-time Alcohol Use: None Substance Use Type: None Smoking Status (MU): Never Smoked Tobacco - Immunization History Most Recent Influenza Vaccination: unk Most Recent Tetanus Shot: unk Most Recent Pneumonia Vaccination: unk Review of Systems All Other Systems Reviewed And Are Negative: No Constitutional: Positive: Negative. Negative: Fever, Chills Skin: Positive: Other - Tick bite, right hip Respiratory: Positive: Negative Cardiovascular: Positive: Negative Gastrointestinal: Positive: Negative Musculoskeletal: Positive: Arthralgia Neurological: Positive: Negative Psychological: Positive: Anxious Physical Exam Triage Information Reviewed: Yes Appearance: Well-Appearing, No Pain Distress, Well-Nourished Vital Signs: Initial Vital Signs Temp 98 F 07/20/19 07:53 Pulse 93 07/20/19 07:53 Resp 16 07/20/19 07:53 BP 153/87 07/20/19 07:53 Pulse Ox 100 07/20/19 07:53 Vital Signs Reviewed: Yes Eyes: Positive: Conjunctiva Clear ENT: Positive: Hearing grossly normal Neck: Positive: Supple Respiratory: Positive: No respiratory distress Neurological: Positive: Alert Psychological: Positive: Age Appropriate Behavior Skin: Positive: Other - 1.5 cm area of erythema noted where the tick was attached. No signs of infection Course/Dx - Course Course Of Treatment: Educates patient on tick bites and treated with 200mg of doxy and instructed her to follow up or return with any sign of infected tick bite over the next few days. Educated her on lyme disease and instructed her to follow up with pcp if needed. Patient voiced understanding and agreed with treatment plan. - Diagnoses Provider Diagnosis: Tick bite of right hip Discharge ED - Sign-Out/Discharge Documenting (check all that apply): Patient Departure All imaging exams completed and their final reports reviewed: No Studies - Discharge Plan Condition: Stable Disposition: HOME Prescriptions: DOXYcycline CAP(*) [DOXYcycline 100MG CAP(*)] 200 mg PO ONCE #2 cap Patient Education Materials: Tick Bite (ED) Referrals: Sandrine Mccann MD [Primary Care Provider] - If Needed Additional Instructions: As discussed, take the one-time dose of Doxycycline to prevent Lyme Disease. It is recommended that you take this with food to avoid stomach upset. No further treatment is required. Follow up with your PCP if you experience a rash where you were the tick bit you within the next month. Return or go to the emergency room if you experience fever, nausea and vomiting , or increasing redness, warmth, or drainage from the area. - Billing Disposition and Condition Condition: STABLE Disposition: Home - Attestation Statements Provider Attestation: I was available for consult. This patient was seen by the NABIL. The patient was not presented to, seen by, or examined by me. -Sheela
== END 2019-07-20 08:25 | disposition home or self-care (01) ==
LOC: UCEAST 07:46
DX: S70.261A Insect bite (nonvenomous), right hip, initial encounter (principal); Z79.01 Long term (current) use of anticoagulants; W57.XXXA Bitten or stung by nonvenomous insect and other nonvenomous arthropods, initial encounter; Y92.9 Unspecified place or not applicable
CPT/HCPCS: 99202; G0463